=== PATIENT | female | born 1940 | race Caucasian/White ===

== ENCOUNTER 2018-09-30 14:40 | Inpatient (IN) | payer OTHER ==
[~2018-09-30] VITALS: Ht 167.6 cm; Wt 118.4 kg
--- NOTE | ~2018-09-30 | H ---
[facility] [place] [address] HISTORY AND PHYSICAL Name: JOSH BERMAN Room #: 206-P ADM IN M.R.#: [id number] Admission: 09/30/18 Attend Phys: Taniya Miller MD Discharge: Date of : 36 Report #: [id number] THIS REPORT FOR: //name// CC: Taniya CASTANEDA PCP DATE OF SERVICE: 09/30/2018 HISTORY OF PRESENT ILLNESS: The patient is an 78-year-old female who came to the Emergency Room with severe sharp pain that goes from the anterior side of her chest and radiates to the back. The patient did have some shortness of breath and this pain got worse with shortness of breath. The patient was evaluated in the Emergency Room and her pain resolved completely. The patient was admitted to the hospital for ruling out myocardial infarction. The patient is not having any chest pain now. The patient said that she does not have any diaphoresis or palpitation. She did not have any nausea or vomiting with the pain. PAST MEDICAL HISTORY: Significant for osteoporosis, previous history of altered mental status, anxiety disorder, constipation, gastroesophageal reflux disease, major depressive disorder, previous history of psychotic illness, type 2 diabetes mellitus, macular degeneration, urinary tract infection and vitamin deficiency. MEDICATIONS: The patient's medications include meloxicam 15 mg daily, Pepcid 20 mg daily, Prilosec 20 mg daily, metformin 1000 mg twice a day, magnesium oxide 400 mg 3 times a day, glimepiride 2 mg daily, Lasix 20 mg 2 times a day, potassium chloride 10 mEq 2 times a day, trazodone 25 mg at bedtime, Celexa 5 mg every day, gabapentin 600 mg 3 times a day, vitamin B12 at 1000 mcg orally daily and Tylenol as needed. ALLERGIES: CELEBREX, PENICILLIN AND SULFA. SOCIAL HISTORY: The patient lives in the assisted living at [facility]. The patient denies any recent history of smoking, alcohol use or drug use. FAMILY HISTORY: Noncontributory. REVIEW OF SYSTEMS: Negative besides what was mentioned above. PHYSICAL EXAMINATION: VITAL SIGNS: Showed a temperature of 36.4, pulse 69, respirations 24 and blood pressure 130/57. Oxygen saturation was 94%. HEAD AND NECK EXAMINATION: Unremarkable. NECK: Supple. LUNGS: Clear to auscultation. [address] [address] HISTORY AND PHYSICAL Name: JOSH BERMAN Room #: [facility] ADM IN M.R.#: [id number] Admission: 09/30/18 Attend Phys: Taniya Miller MD Discharge: Date of : 36 Report #: [id number] CARDIAC: S1, S2. ABDOMEN: Benign. Bowel sounds were positive. EXTREMITIES: Without any edema. LABORATORY DATA: The patient's lab showed 12-lead EKG with regular sinus rhythm and no significant abnormalities. CBC with diff was unremarkable besides MCV of 77 and RDW of 17. The patient's comprehensive metabolic panel was normal besides a BUN of 34, creatinine 1.4, total protein of 8.3. Troponin less than 0.06. AP chest x-ray showed bibasilar mild infiltration and atelectasis with small effusion. Repeated troponin is less than 0.06. ASSESSMENT AND PLAN: 1. Chest pain, rule out myocardial infarction. 2. Diabetes mellitus. 3. Edema of the lower extremities. 4. Symptoms suggestive for congestive heart failure with fluid overload. The patient was admitted to the hospital with the above-mentioned diagnoses. The patient to rule out myocardial infarction by serial cardiac enzymes. I will have an echocardiogram on the patient to evaluate her ejection fraction and I will continue with the Lasix for now. I will check the patient's BNP and check a D-dimer and if it is elevated at that time, we will do a CT scan of the chest. The patient's chest pain has cleared up completely. We will continue to monitor the patient and I will resume her medications. <ELECTRONICALLY SIGNED> By: Taniya Miller MD 10/02/18 [id number] Taniya Miller MD /nt
--- NOTE | ~2018-09-30 | EKG ---
[address] [address] ELECTROCARDIOGRAM REPORT Name: JOSH BERMAN Room #: 206-P ADM IN M.R.#: [id number] Admission: 09/30/18 Attend Phys: Taniya Miller MD Discharge: Date of : 36 Report #: [id number] THIS REPORT FOR: //name// 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
--- NOTE | ~2018-09-30 | 2DMMODE ---
[facility] [address] [place] [address] 2 D/M-MODE ECHOCARDIOGRAM Name: JOSH BERMAN Room #: 206-P ADM IN M.R.#: [id number] Admission: 09/30/18 Attend Phys: Taniya Miller MD Discharge: Date of : 36 Date of Service: 10/01/18 1422 Report #: [id number] THIS REPORT FOR: //name// APPROVED REPORT Study performed: 10/01/2018 08:52:02 EXAM: Comprehensive 2D, Doppler, and color-flow Echocardiogram Patient Location: Bedside Room #: 206 Status: on-call BSA: 2.24 HR: 68 bpm BP: 128/67 mmHg Rhythm: NSR Other Information Study Quality: Adequate Technically limited study due to morbid obesity. Indications Congestive Heart Failure Chest pain. Hx: DM 2D Dimensions RVDd: 35.64 mm IVSd: 11.95 (7-11mm) LVOT Diam: 20.21 (18-24mm) LVDd: 50.30 mm PWd: 10.85 (7-11mm) Ascending Ao: 38.20 (22-36mm) LVDs: 27.91 (25-40mm) Aortic Root: 33.76 mm Volumes Left Atrial Volume (Systole) Single Plane 4CH: 49.07 mL Single Plane 2CH: 52.75 mL LA ESV Index: 24.00 mL/m2 Aortic Valve AoV Peak Stefan.: 1.85 m/s AO Peak Gr.: 13.68 mmHg LVOT Max P.31 mmHg LVOT Max V: 1.26 m/s MAXIME Vmax: 2.18 cm2 Mitral Valve [facility] [address] [place] [address] 2 D/M-MODE ECHOCARDIOGRAM Name: JOSH BERMAN Room #: 206-P ADM IN [facility].#: [id number] Admission: 09/30/18 Attend Phys: Taniya Miller MD Discharge: Date of : 36 Date of Service: 10/01/18 1422 Report #: [id number] E/A Ratio: 0.9 MV Decel. Time: 191.71 ms MV E Max Stefan.: 0.64 m/s MV A Stefan.: 0.71 m/s MV PHT: 55.59 ms IVRT: 78.43 ms Pulmonary Valve PV Peak Stefan.: 1.05 m/s PV Peak Gr.: 4.38 mmHg Tricuspid Valve TR Peak Stefan.: 2.88 m/s TR Peak Gr.: 33.09 mmHg Left Ventricle The left ventricle is normal size. There is normal LV segmental wall motion. Mild concentric left ventricular hypertrophy. Left ventricular systolic function is normal. LVEF is 60-65%. Mild diastolic dysfunction is present (impaired relaxation pattern). Right Ventricle The right ventricle is normal size. The right ventricular systolic function is normal. Atria The left atrium size is normal. The right atrium size is normal. Aortic Valve The aortic valve is normal in structure. Aortic valve leaflets are mildly thickened. No aortic regurgitation is present. There is no aortic valvular stenosis. Mitral Valve The mitral valve is normal in structure. Trace mitral regurgitation. Tricuspid Valve The tricuspid valve is normal in structure. Mild tricuspid regurgitation. Estimated PAP is 33mmHg plus the right atrial pressure. Pulmonic Valve The pulmonary valve is normal in structure. Trace pulmonic regurgitation. [facility] [address] [place] [address] 2 D/M-MODE ECHOCARDIOGRAM Name: JOSH BERMAN Room #: 206-P ADM IN M.R.#: [id number] Admission: 09/30/18 Attend Phys: Taniya Miller MD Discharge: Date of : 36 Date of Service: 10/01/18 1422 Report #: [id number] Great Vessels The aortic root is normal in size. The ascending aorta is borderline dilated. IVC is not well visualized. Pericardium There is no pericardial effusion. <Conclusion> The left ventricle is normal size. Mild concentric left ventricular hypertrophy. Left ventricular systolic function is normal. LVEF is 60-65%. The right ventricle is normal size. The aortic valve is normal in structure. Aortic valve leaflets are mildly thickened. There is no aortic valvular stenosis. The aortic root is normal in size. There is no pericardial effusion. <ELECTRONICALLY SIGNED> By: Chinedu Carver MD 10/01/181421 21 21 Chinedu Carver MD /INF
[~2018-09-30 14:40] MED LIST: ANTACID500 MG PO; ARICEPT10 M1 PO; ARIPIPRAZOLE10 MG; AZITHROMYCIN 2250 MG PO; CALCIUM 600 +1 EAC5 PO; CELEXA20 MG PO; CENTRUM SILVER1 EAC4 PO; CIPROFLOXACIN500 M1 PO; CLARITIN10 MG PO; COLACE 100 MG100 MG PO; ENOXAPARIN40 MG/0.1 SUBQ; EYE OMEGA ADVA1 EACH PO; FISH OIL 1,0001 EAC5 PO; GABAPENTIN100 MG PO; GLUCOSAMINE1000 MG PO; HYDROCODON-ACE1 EAC7 PO; IBUPROFEN 200200 M1 PO; K-DUR 20 MEQ T20 MEQ PO; LIDODERM 5%1 PATCH TOP; MACROBID 100 M100 M1 PO; MAG DELAY64 MG PO; MEDROL DOSPAK21 TAB PO; MEDROLDOSEPACK PO; NAPROSYN500 MG PO; NEXIUM 40 MG CA40 M1 PO; NORCO 5-325 TA1 EACH PO; NORFLEX100 MG PO; OLANZAPINE7.5 MG; ONDANSETRON HCL4 M2 PO; OXYCODONE HCL 55 MG PO; OXYCODONE HCL15 MG PO; PEG3350510 GM PO; PREDNISONE 20 M20 MG PO; SENNA PO; TAMSULOSIN HCL0.4 M1 PO; TRAZODONE 150150 M1 PO; VENTOLIN HFA 1818 GM INH; VITAMIN C + RO500 MG PO; XANAX 0.5 MG0.5 M1 PO; ZOFRAN ODT4 MG DISSOLVE; ZOFRAN ODT4 MG PO; [UNRECOGNIZED DRUG - CODE] PO
[2018-09-30 14:45] VITALS: BP 130/57
[2018-09-30 15:06] LABS: HEMATOCRIT 37.7 % (37.0-47.0); HEMOGLOBIN 12.2 gm/dL (12.0-15.0); MCH 25.2 pg (26.0-34.0); MCHC 32.4 g/dL (28.0-37.0); MCV 77.9 fL (80.0-100.0); RBC 4.85 mil/uL (4.20-5.00); WBC 10.1 thou/uL (4.0-11.0)
[2018-09-30 15:15] LABS: ANION GAP 10 mmol/L (7-16); BUN 34 mg/dL (7-18); CHLORIDE 103 mmol/L (98-107); CO2 26 mmol/L (21-32); CREATININE 1.4 mg/dL (0.6-1.0); GLUCOSE 78 mg/dL (74-106); SODIUM 139 mmol/L (136-145)
[2018-09-30 15:24] LABS: ALBUMIN 3.8 g/dL (3.4-5.0); SGOT 20 U/L (15-37); SGPT 34 U/L (30-65); TOTAL BILIRUBIN 0.4 mg/dL (<0.1-1.0); TOTAL PROTEIN 8.3 g/dL (6.4-8.2); TROPONIN-I <0.06 ng/mL (<0.06)
[2018-09-30 17:09] VITALS: BP 129/59
[2018-09-30 18:39] VITALS: BP 123/67
[2018-09-30 19:04] VITALS: BP 136/61
[2018-09-30 23:58] VITALS: BP 128/70
[2018-09-30] MEDS ORDERED: MOBIC15 MG PO (23:58)
[2018-10-01] MEDS ORDERED: PEPCID20 MG PO (00:01)
[2018-10-01] MEDS ORDERED: NYAMYC15 GM TOP (00:02)
[2018-10-01] MEDS ORDERED: PRILOSEC 20 MG20 MG PO ×2 (00:03→00:45)
[2018-10-01] MEDS ORDERED: METFORMIN HCL500 MG PO (00:14)
[2018-10-01] MEDS ORDERED: MAGOX 400400 MG PO (00:15)
[2018-10-01] MEDS ORDERED: AMARYL2 MG PO (00:18)
[2018-10-01] MEDS ORDERED: BIOFREEZE118 ML TOP (00:25)
[2018-10-01] MEDS ORDERED: LASIX 20 MG TAB20 MG PO (00:28)
[2018-10-01] MEDS ORDERED: TUSSIN DM CLEA118 ML PO (00:37)
[2018-10-01] MEDS ORDERED: TRAZODONE HCL50 MG PO ×2 (00:38→00:39)
[2018-10-01] MEDS ORDERED: CELEXA10 MG PO (00:39)
[2018-10-01] MEDS ORDERED: NEURONTIN600 MG PO (00:41)
[2018-10-01] MEDS ORDERED: B12INJ IM (00:41)
[2018-10-01] MEDS ORDERED: VITAMIN B-12500 MCG PO (00:42)
[2018-10-01] MEDS ORDERED: LOPERAMIDE 2 MG2 M1 PO (00:44)
[2018-10-01] MEDS ORDERED: TYLENOL EXTRA500 MG PO (00:47)
[2018-10-01 04:00] VITALS: BP 128/67
[2018-10-01 08:37] VITALS: BP 132/60
[2018-10-01 08:39] LABS: CHOLESTEROL 241 mg/dL (<200); HDL CHOLESTEROL 39 mg/dL (>40); LDL CHOLESTEROL 159 mg/dL (<100); TC:HDL 6.2 Ratio (Not establshd); TRIGLYCERIDE 215 mg/dL (<150); VLDL 43 mg/dL (<40)
[2018-10-01 13:13] VITALS: BP 131/57
[2018-10-01 16:23] VITALS: BP 116/54
[2018-10-01 20:22] VITALS: BP 130/68
[2018-10-02 00:05] LABS: GLYCOHEMOGLOBIN (HGB A1C) 6.9 % (4.8-5.6)
[2018-10-02 03:47] VITALS: BP 119/60
[2018-10-02 05:05] LABS: ABSOLUTE NEUTROPHILS 5.4 thou/uL (1.4-8.2); BASOPHILS 0.9 % (0.0-2.0); EOSINOPHILS 3.1 % (0.0-3.0); HEMATOCRIT 36.5 % (37.0-47.0); HEMOGLOBIN 11.6 gm/dL (12.0-15.0); LYMPHOCYTES 24.8 % (24.0-44.0); MCH 25.1 pg (26.0-34.0); MCHC 31.8 g/dL (28.0-37.0); MCV 78.8 fL (80.0-100.0); MONOCYTES 9.8 % (1.0-8.0); PLATELET COUNT 304 thou/uL (150-400); POLYS 61.4 % (36.0-66.0); RBC 4.63 mil/uL (4.20-5.00); RDW 16.7 % (10.5-14.5); WBC 8.8 thou/uL (4.0-11.0)
[2018-10-02 05:13] LABS: CALCIUM 9.1 mg/dL (8.5-10.1); CREATININE 1.4 mg/dL (0.6-1.0); POTASSIUM 4.5 mmol/L (3.5-5.1)
[2018-10-02 07:29] VITALS: BP 115/58
[2018-10-02 11:29] VITALS: BP 108/57
[2018-10-02 15:57] VITALS: BP 119/63
[2018-10-02 20:00] VITALS: BP 114/61
[2018-10-03 03:37] LABS: ABSOLUTE NEUTROPHILS 5.7 thou/uL (1.4-8.2); BASOPHILS 1.1 % (0.0-2.0); EOSINOPHILS 2.9 % (0.0-3.0); HEMATOCRIT 37.7 % (37.0-47.0); LYMPHOCYTES 26.3 % (24.0-44.0); MCH 25.1 pg (26.0-34.0); MCV 78.5 fL (80.0-100.0); MONOCYTES 10.2 % (1.0-8.0); PLATELET COUNT 310 thou/uL (150-400); POLYS 59.5 % (36.0-66.0); RDW 16.9 % (10.5-14.5); WBC 9.5 thou/uL (4.0-11.0)
[2018-10-03 03:51] LABS: CALCIUM 8.8 mg/dL (8.5-10.1); CREATININE 1.5 mg/dL (0.6-1.0); POTASSIUM 4.4 mmol/L (3.5-5.1)
[2018-10-03 04:30] VITALS: BP 111/57
[2018-10-03 12:04] VITALS: BP 126/60
[2018-10-03 13:29] VITALS: BP 106/83
[2018-10-03 16:35] VITALS: BP 116/54
[2018-10-03 19:24] VITALS: BP 126/37
[2018-10-04 03:21] VITALS: BP 112/56
[2018-10-04 03:29] LABS: HEMATOCRIT 37.3 % (37.0-47.0); HEMOGLOBIN 11.7 gm/dL (12.0-15.0); MCH 24.8 pg (26.0-34.0); MCHC 31.5 g/dL (28.0-37.0); MCV 78.5 fL (80.0-100.0); RBC 4.75 mil/uL (4.20-5.00); RDW 16.9 % (10.5-14.5)
[2018-10-04 03:42] LABS: CALCIUM 9.3 mg/dL (8.5-10.1); CREATININE 1.7 mg/dL (0.6-1.0); POTASSIUM 4.4 mmol/L (3.5-5.1)
[2018-10-04] MEDS ORDERED: IPRAT-ALBUT 0.5-3 ML INH (07:18)
[2018-10-04 07:35] VITALS: BP 124/65
== END 2018-10-04 15:10 | DRG 683 ==
LOC: ER 14:40 → 2N 15:49 → EROBS 15:49 → 2N 18:28
PROVIDERS: Internal Medicine; Physician Assistant
DX: N17.9 Acute kidney failure, unspecified (principal); Z68.41 Body mass index [BMI] 40.0-44.9, adult; I50.9 Heart failure, unspecified; H35.30 Unspecified macular degeneration; F03.90 Unspecified dementia, unspecified severity, without behavioral disturbance, psychotic disturbance, mood disturbance, and anxiety; F41.9 Anxiety disorder, unspecified; K21.9 Gastro-esophageal reflux disease without esophagitis; F32.9 Major depressive disorder, single episode, unspecified; I11.0 Hypertensive heart disease with heart failure; J84.10 Pulmonary fibrosis, unspecified; E11.42 Type 2 diabetes mellitus with diabetic polyneuropathy; E66.9 Obesity, unspecified; Z90.49 Acquired absence of other specified parts of digestive tract; Z90.710 Acquired absence of both cervix and uterus; Z79.899 Other long term (current) drug therapy; Z88.0 Allergy status to penicillin; Z88.2 Allergy status to sulfonamides; Z88.8 Allergy status to other drugs, medicaments and biological substances; R07.9 Chest pain, unspecified
CPT/HCPCS: 10081

== ENCOUNTER → 2018-11-23 | Outpatient (CLI) | payer OTHER ==
[~2018-11-23] MED LIST changes: +AMARYL2 MG PO; +B12INJ IM; +BIOFREEZE118 ML TOP; +CELEXA10 MG PO; +IPRAT-ALBUT 0.5-3 ML INH; +LASIX 20 MG TAB20 MG PO; +LOPERAMIDE 2 MG2 M1 PO; +MAGOX 400400 MG PO; +METFORMIN HCL500 MG PO; +MOBIC15 MG PO; +NEURONTIN600 MG PO; +NYAMYC15 GM TOP; +PEPCID20 MG PO; +PRILOSEC 20 MG20 MG PO; +TRAZODONE HCL50 MG PO; +TUSSIN DM CLEA118 ML PO; +TYLENOL EXTRA500 MG PO; +VITAMIN B-12500 MCG PO
[2018-11-23 11:11] LABS: ABSOLUTE NEUTROPHILS 5.7 thou/uL (1.4-8.2); BASOPHILS 1.4 % (0.0-2.0); HEMATOCRIT 37.3 % (37.0-47.0); HEMOGLOBIN 11.7 gm/dL (12.0-15.0); LYMPHOCYTES 20.5 % (24.0-44.0); MCH 24.8 pg (26.0-34.0); MCHC 31.3 g/dL (28.0-37.0); MCV 79.3 fL (80.0-100.0); MONOCYTES 7.8 % (1.0-8.0); PLATELET COUNT 341 thou/uL (150-400); POLYS 67.3 % (36.0-66.0); RDW 17.1 % (10.5-14.5); WBC 8.4 thou/uL (4.0-11.0)
[2018-11-23 11:41] LABS: BE(vivo) -1.4 mmol/L (-2 to +3); HCO3 23.5 mmol/L (22.0-26.0); PCO2 40.2 mmHg (35.0-45.0); PO2 67.4 mmHg (80.0-100.0); pH 7.384 (7.360-7.450); sO2 93.2 % (92.0-98.0)
== END ==
LOC: PUL 11-22 10:26
PROVIDERS: Internal Medicine Pulmonary Disease
DX: J47.9 Bronchiectasis, uncomplicated (principal); R91.1 Solitary pulmonary nodule; K76.89 Other specified diseases of liver; R06.09 Other forms of dyspnea; M47.815 Spondylosis without myelopathy or radiculopathy, thoracolumbar region; M41.84 Other forms of scoliosis, thoracic region; Z90.49 Acquired absence of other specified parts of digestive tract

== ENCOUNTER → 2018-12-08 | Outpatient (CLI) | payer OTHER ==
--- NOTE | ~2018-12-08 | SLE ---
[facility] [place] [address] POLYSOMNOGRAPHY STUDY Name: JOSH BERMAN Room #: [facility].#: [id number] Admission: 12/08/18 Attend Phys: Usama Page MD Discharge: Date of : 38 Report #: [id number] THIS REPORT FOR: //name// CC: Usama Bowers MD DATE OF SERVICE: 12/08/2018 ATTENDING PHYSICIAN: Dr. Osmel Bowers. The patient is 78 years old, who weighs 260 pounds with a BMI of 42. The patient's Aiken score was 3. The patient underwent diagnostic sleep study at [facility] to rule out YEVGENIY. During the night study, the patient spent 362 minutes in bed and slept for 318 minutes with a sleep efficiency of 88%. Sleep latency was 15.8 minutes with a REM latency of 282 minutes. Overall, sleep architecture showed a normal stage 1 sleep, increased stage 2 sleep, normal slow wave and reduced REM sleep, which was 6.6% of total sleep time. During the night of the study, the patient had 10 apneas, 4 central and 6 obstructive and 31 hypopneas. The patient's apnea-hypopnea index was 7.7 per hour with a REM index of 11.4 per hour and a supine index of 12 per hour. EKG monitoring revealed an average heart rate of 65 beats per minute. There were PVCs seen throughout the study. No sustained arrhythmias observed. Maximum heart rate was 83 beats per minute. PLMs were seen at an index of 52 per hour, but only 1 per hour caused EEG arousals. Nocturnal oximetry study revealed an average oxygen saturation of 86% with the lowest of 76%. 314 minutes were spent in oxygen saturation of less than 89%. Due to low AHI, the patient did not meet the split night criteria for CPAP initiation. IMPRESSION: 1. Mild sleep apnea-hypopnea syndrome with an AHI of 7.7 per hour. 2. Moderate sustained nocturnal hypoxia suggesting hypoventilation. 3. Severe PLMs without any significant EEG arousals. 4. Abnormal EKG with frequent PVCs. RECOMMENDATIONS: 1. The patient did not meet the split night criteria for CPAP initiation. [facility] [address] [place] [address] POLYSOMNOGRAPHY STUDY Name: JOSH BERMAN Room #: [facility].#: [id number] Admission: 12/08/18 Attend Phys: Usama Page MD Discharge: Date of : 36 Report #: [id number] 2. Would recommend weight loss as initial form of treatment for patient's mild sleep apnea. 3. If on followup, patient continues to have excessive daytime somnolence then consider other treatment options such as oral appliance or a trial of CPAP titration. 4. Avoid UM RN depressants. 5. Cautioned regarding driving until symptoms of sleep apnea resolve with the above recommendation. 6. Follow up with Cardiology if clinically indicated regarding abnormal EKG. 7. PLMs does not need to be treated unless the patient has symptoms of restless legs during the day. 8. The patient would also qualify for nocturnal oxygen 1-2 liters. By: 1823 1945 Usama Page MD /nt
== END ==
LOC: SLEEPLAB 10:52
DX: G47.30 Sleep apnea, unspecified (principal); G47.61 Periodic limb movement disorder; R09.02 Hypoxemia; R94.31 Abnormal electrocardiogram [ECG] [EKG]; I49.3 Ventricular premature depolarization

== ENCOUNTER → 2019-05-11 | Outpatient (CLI) | payer OTHER | LOC: CAT 09:30 | DX: J98.4 Other disorders of lung (principal); K76.89 Other specified diseases of liver; I70.0 Atherosclerosis of aorta; J98.11 Atelectasis; R13.10 Dysphagia, unspecified; I69.892 Facial weakness following other cerebrovascular disease; M25.561 Pain in right knee; M25.512 Pain in left shoulder; M25.532 Pain in left wrist; R39.81 Functional urinary incontinence; R26.89 Other abnormalities of gait and mobility; R29.3 Abnormal posture; Z74.09 Other reduced mobility ==

== ENCOUNTER → 2020-03-26 | Outpatient (CLI) | payer OTHER | LOC: CAT 11-13 09:55 | DX: J84.10 Pulmonary fibrosis, unspecified (principal) ==

== ENCOUNTER → 2020-04-10 | Outpatient (CLI) | payer OTHER | LOC: SJCVC 10:43 | PROVIDERS: ATTEND Internal Medicine | DX: R07.2 Precordial pain (principal); J96.11 Chronic respiratory failure with hypoxia; J84.10 Pulmonary fibrosis, unspecified; G47.33 Obstructive sleep apnea (adult) (pediatric); E11.9 Type 2 diabetes mellitus without complications; K21.9 Gastro-esophageal reflux disease without esophagitis; E78.5 Hyperlipidemia, unspecified; Z79.899 Other long term (current) drug therapy; Z79.84 Long term (current) use of oral hypoglycemic drugs ==

== ENCOUNTER → 2020-05-09 | Outpatient (CLI) | payer OTHER | LOC: SJCVCIMAG 07:40 | PROVIDERS: ATTEND Internal Medicine | DX: J84.9 Interstitial pulmonary disease, unspecified (principal); J96.90 Respiratory failure, unspecified, unspecified whether with hypoxia or hypercapnia; G47.33 Obstructive sleep apnea (adult) (pediatric); E11.9 Type 2 diabetes mellitus without complications; Z88.0 Allergy status to penicillin; Z79.899 Other long term (current) drug therapy; Z88.8 Allergy status to other drugs, medicaments and biological substances ==

== ENCOUNTER → 2020-05-14 | Outpatient (CLI) | payer OTHER | LOC: RAD 13:28 | PROVIDERS: ATTEND Internal Medicine Pulmonary Disease | DX: R91.8 Other nonspecific abnormal finding of lung field (principal); I51.7 Cardiomegaly ==

== ENCOUNTER → 2020-09-25 | Outpatient (CLI) | payer OTHER | LOC: RAD 12:37 | PROVIDERS: ATTEND Internal Medicine Pulmonary Disease | DX: J98.4 Other disorders of lung (principal) ==